=== PATIENT | male | born 1960 | race Caucasian/White ===

== ENCOUNTER → 2018-06-12 | Outpatient (CLI) | payer MEDICARE ==
[2018-06-12 09:42] LABS: Basophils # (auto) 0 uL; Basophils % (auto) 0.3 % (0.0-2.0); Eosinophils # (auto) 0.1 uL; Eosinophils % (auto) 2.8 % (0.0-7.0); Hematocrit 41.8 % (41.0-53.0); Hemoglobin 14.1 g/dL (13.5-17.5); Lymphocytes # (auto) 1.3 uL; Lymphocytes % (auto) 26.2 % (10.0-50.0); Mean Corpuscular Hemoglobin 28.9 pg (28.0-32.0); Mean Corpuscular Hgb Conc. 33.7 g/dL (32.0-36.0); Mean Corpuscular Volume 85.9 fL (80.0-100.0); Monocytes # (auto) 0.4 uL; Monocytes % (auto) 8.6 % (0.0-12.0); Neutrophils # (auto) 3.1 uL; Neutrophils % (auto) 62.1 % (37.0-80.0); Nucleated Red Blood Cells % 0.1 %; Platelet Count (auto) 227 10^3/uL (140-450); Red Blood Cells 4.87 10^6/uL (4.5-5.90); Red Cell Distribution Width 14.4 % (11.8-14.3); White Blood Cell 5.1 10^3/uL (4.4-10.8)
[2018-06-12 10:07] LABS: Potassium 4.4 mmol/L (3.5-5.1)
[2018-06-12 10:16] LABS: Albumin 4.1 g/dL (3.4-5.0); BUN/Creatinine Ratio 16.7; Bilirubin, Total 0.5 mg/dL (0.2-1.0); Calcium 9.3 mg/dL (8.5-10.1); Total Protein 7.8 g/dL (6.4-8.2)
== END | disposition home or self-care (01) ==
LOC: LAB 08:23
PROVIDERS: ATTEND Physician Assistant
DX: Z12.5 Encounter for screening for malignant neoplasm of prostate (principal); R53.83 Other fatigue; I20.8 Other forms of angina pectoris; R55 Syncope and collapse; M54.12 Radiculopathy, cervical region; G89.29 Other chronic pain
CPT/HCPCS: 36415; 80053; 80061; 84153; 84403; 85025

== ENCOUNTER 2018-08-18 08:04 | Day surgery (SDC) | payer MEDICARE ==
[2018-08-15 12:36] LABS: Basophils # (auto) 0 uL; Basophils % (auto) 0.6 % (0.0-2.0); Eosinophils # (auto) 0.3 uL; Eosinophils % (auto) 4.5 % (0.0-7.0); Hematocrit 41.6 % (41.0-53.0); Hemoglobin 14.5 g/dL (13.5-17.5); Lymphocytes # (auto) 1.7 uL; Lymphocytes % (auto) 29.9 % (10.0-50.0); Mean Corpuscular Hgb Conc. 34.9 g/dL (32.0-36.0); Mean Corpuscular Volume 85.8 fL (80.0-100.0); Monocytes # (auto) 0.4 uL; Monocytes % (auto) 7.4 % (0.0-12.0); Neutrophils # (auto) 3.2 uL; Neutrophils % (auto) 57.6 % (37.0-80.0); Platelet Count (auto) 234 10^3/uL (140-450); Red Blood Cells 4.85 10^6/uL (4.5-5.90); Red Cell Distribution Width 14.1 % (11.8-14.3); White Blood Cell 5.6 10^3/uL (4.4-10.8)
[2018-08-15 12:44] LABS: INR 0.97 (0.9-1.15); Partial Thromboplastin Time 29.2 sec (23.78-33.04); Prothrombin Time 10.4 sec (9.27-12.13)
[2018-08-15 13:09] LABS: Albumin 4.1 g/dL (3.4-5.0); Calcium 8.8 mg/dL (8.5-10.1); Potassium 4.1 mmol/L (3.5-5.1)
[2018-08-15 13:13] LABS: BUN/Creatinine Ratio 16.9; Bilirubin, Total 0.3 mg/dL (0.2-1.0); Total Protein 7.7 g/dL (6.4-8.2)
[~2018-08-18] VITALS: Ht 185.4 cm; Wt 120.2 kg
[~2018-08-18 08:04] MED LIST: ASPI81TA27 PO; IBUP200T76 PO; IOHEXOL 350 MG/ML 100ML IJ ONE; LIDOCAINE 2%HCL (LOCAL ANESTH.) INJ 20ML MDV ONE
[2018-08-18] MEDS ORDERED: ANGIOMAX 250 MG VIAL IV ONE (09:05)
[2018-08-18] MEDS ORDERED: SODIUM CHL 0.9% 0 ML ONE (09:06)
[2018-08-18] MEDS ORDERED: MIDAZOLAM HCL 1MG/1ML-2 ML VIAL ONE (09:06)
[2018-08-18] MEDS ORDERED: EPINEPHrine HCL 1 MG/10 ML SYRG ONE (09:06)
[2018-08-18] MEDS ORDERED: fentaNYL CITRATE 100 MCG/2 ML VL ONE (09:06)
[2018-08-18] MEDS ORDERED: ATROPINE SULF 1 MG/10ml SYR ONE (09:07)
[2018-08-18] MEDS ORDERED: IOHEXOL 350 MG/ML 100ML IJ ONE (09:16)
[2018-08-18] MEDS ORDERED: METO-158 PO (10:30)
== END 2018-08-18 12:14 | disposition home or self-care (01) ==
LOC: CATH 08:04
PROVIDERS: ATTEND Internal Medicine
DX: R07.89 Other chest pain (principal); I10 Essential (primary) hypertension; E78.5 Hyperlipidemia, unspecified; Z79.82 Long term (current) use of aspirin; I25.2 Old myocardial infarction; Z88.1 Allergy status to other antibiotic agents; Z79.899 Other long term (current) drug therapy; Z98.890 Other specified postprocedural states; Z88.2 Allergy status to sulfonamides
CPT/HCPCS: 36415; 80053; 85025; 85610; 85730; 93458; A6257; C1760; C1894; J1644; J2250; J3010; J7030; Q9967; 99152

== ENCOUNTER → 2018-10-02 | Outpatient (CLI) | payer MEDICARE ==
[~2018-10-02] MED LIST changes: -IOHEXOL 350 MG/ML 100ML IJ ONE; -LIDOCAINE 2%HCL (LOCAL ANESTH.) INJ 20ML MDV ONE; +METO-158 PO
== END | disposition home or self-care (01) ==
LOC: LAB 13:39
PROVIDERS: ATTEND Physician Assistant
DX: R79.89 Other specified abnormal findings of blood chemistry (principal)
CPT/HCPCS: 36415; 84403

== ENCOUNTER → 2018-10-23 | Outpatient (CLI) | payer MEDICARE | END | disposition home or self-care (01) | LOC: XYW 07:08 | PROVIDERS: ATTEND Internal Medicine | DX: I07.1 Rheumatic tricuspid insufficiency (principal); I48.91 Unspecified atrial fibrillation; I77.89 Other specified disorders of arteries and arterioles | CPT/HCPCS: 93306 ==

== ENCOUNTER → 2018-10-28 | Outpatient (CLI) | payer MEDICARE ==
[2018-10-28 09:45] VITALS: BP 169/68
--- NOTE | 2018-10-28 10:00 | NUR ---
Rec'd pt ambulatory, A/Ox4 on RA, connected to quality assurance monitor. BP high 169/98, HR 71; rest of VS WNL stress test assessment documentation & see cardio-neuro procedural notes for additional details, Lt AC 22G PIV flushes well, reviewed POC, pt verbalized understanding, Treadmill stress test performed per protocol, nuclear medicine at bedside to administer Cardiolite, pt tolerated well, VS returned to baseline, transferred to [facility] via ambulation w/ tech, pt stable, no change on exam.
== END | disposition home or self-care (01) ==
LOC: XY 08:25
PROVIDERS: ATTEND Internal Medicine
DX: I48.91 Unspecified atrial fibrillation (principal)
CPT/HCPCS: 78452; 93017; A9500

== ENCOUNTER → 2018-11-26 | Outpatient (CLI) | payer MEDICARE ==
[2018-11-26 14:54] LABS: Albumin 4.2 g/dL (3.4-5.0); Calcium 9.4 mg/dL (8.5-10.1); Potassium 3.6 mmol/L (3.5-5.1)
[2018-11-26 14:56] LABS: BUN/Creatinine Ratio 16.8
[2018-11-26 14:59] LABS: Bilirubin, Total 0.4 mg/dL (0.2-1.0); Total Protein 8.2 g/dL (6.4-8.2)
== END | disposition home or self-care (01) ==
LOC: LAB 14:00
PROVIDERS: ATTEND Internal Medicine
DX: I48.91 Unspecified atrial fibrillation (principal); I50.9 Heart failure, unspecified
CPT/HCPCS: 36415; 80053; 83880

== ENCOUNTER → 2018-12-05 | Outpatient (CLI) | payer MEDICARE, MEDICAID | END | disposition home or self-care (01) | LOC: XYW 10:25 | PROVIDERS: ATTEND Internal Medicine | DX: I07.1 Rheumatic tricuspid insufficiency (principal); I48.91 Unspecified atrial fibrillation; I50.9 Heart failure, unspecified | CPT/HCPCS: 93306 ==

== ENCOUNTER → 2018-12-26 | Outpatient (CLI) | payer MEDICARE, MEDICAID ==
[2018-12-26 11:03] LABS: Basophils # (auto) 0 uL; Basophils % (auto) 0.4 % (0.0-2.0); Eosinophils # (auto) 0.2 uL; Eosinophils % (auto) 3.2 % (0.0-7.0); Hematocrit 42.2 % (41.0-53.0); Hemoglobin 14.5 g/dL (13.5-17.5); Lymphocytes # (auto) 1.4 uL; Lymphocytes % (auto) 23.9 % (10.0-50.0); Mean Corpuscular Hemoglobin 29.6 pg (28.0-32.0); Mean Corpuscular Hgb Conc. 34.2 g/dL (32.0-36.0); Mean Corpuscular Volume 86.6 fL (80.0-100.0); Monocytes # (auto) 0.5 uL; Monocytes % (auto) 8.5 % (0.0-12.0); Neutrophils # (auto) 3.7 uL; Nucleated Red Blood Cells % 0.1 %; Platelet Count (auto) 242 10^3/uL (140-450); Red Blood Cells 4.88 10^6/uL (4.5-5.90); Red Cell Distribution Width 14.1 % (11.8-14.3); White Blood Cell 5.8 10^3/uL (4.4-10.8)
[2018-12-26 13:02] LABS: Chloride 105 mmol/L (98-107); Potassium 3.7 mmol/L (3.5-5.1); Sodium 141 mmol/L (136-145)
[2018-12-26 13:12] LABS: Alanine Aminotransferase 39 U/L (16-61); Anion Gap 9 (5-15); BUN/Creatinine Ratio 9.9; Blood Urea Nitrogen 9 mg/dL (7-18); Calcium 8.5 mg/dL (8.5-10.1); Carbon Dioxide 27 mmol/L (21-32); GFR African American 110 mL/min; GFR Non-African American 91 mL/min; Glucose 95 mg/dL (74-106)
[2018-12-26 13:52] LABS: Cholesterol 163 mg/dL (< 200); Triglycerides 437 mg/dL (< 150)
[2018-12-26 13:57] LABS: HDL Cholesterol 33 mg/dL (40-59)
[2018-12-26 14:02] LABS: Alkaline Phosphatase 75 U/L (45-117); Aspartate Aminotransferase 23 U/L (15-37); Bilirubin, Total 0.5 mg/dL (0.2-1.0); Total Protein 7.5 g/dL (6.4-8.2)
== END | disposition home or self-care (01) ==
LOC: LAB 10:44
PROVIDERS: ATTEND Physician Assistant
DX: Z12.5 Encounter for screening for malignant neoplasm of prostate (principal); R79.81 Abnormal blood-gas level; I11.0 Hypertensive heart disease with heart failure; I50.9 Heart failure, unspecified
CPT/HCPCS: 36415; 80053; 80061; 84153; 84403; 85025

== ENCOUNTER → 2019-05-06 | Outpatient (CLI) | payer MEDICARE, MEDICAID ==
[~2019-05-06] MED LIST changes: +ASPI-404 PO; -ASPI81TA27 PO
== END | disposition home or self-care (01) ==
LOC: LAB 14:35
PROVIDERS: ATTEND Physician Assistant
DX: E78.1 Pure hyperglyceridemia (principal); I11.0 Hypertensive heart disease with heart failure; I50.30 Unspecified diastolic (congestive) heart failure; R79.89 Other specified abnormal findings of blood chemistry; R53.83 Other fatigue; E55.9 Vitamin D deficiency, unspecified
CPT/HCPCS: 36415; 82306; 82607; 84403; 84443

== ENCOUNTER → 2019-05-07 | Outpatient (CLI) | payer MEDICARE, MEDICAID ==
[2019-05-07 14:42] LABS: Free T4 (Free Thyroxine) 0.76 ng/dL (0.89-1.76); T3 Total 1.34 ng/mL (0.60-1.81)
== END | disposition home or self-care (01) ==
LOC: LAB 13:27
PROVIDERS: ATTEND Physician Assistant
DX: R79.89 Other specified abnormal findings of blood chemistry (principal); I11.0 Hypertensive heart disease with heart failure; I50.30 Unspecified diastolic (congestive) heart failure; F17.200 Nicotine dependence, unspecified, uncomplicated
CPT/HCPCS: 84439; 84480

== ENCOUNTER → 2019-06-23 | Outpatient (CLI) | payer MEDICARE, MEDICAID ==
[2019-06-23 13:02] LABS: Basophils # (auto) 0 uL; Basophils % (auto) 0.7 % (0.0-2.0); Eosinophils # (auto) 0.2 uL; Eosinophils % (auto) 2.6 % (0.0-7.0); Hematocrit 44.8 % (41.0-53.0); Hemoglobin 15.2 g/dL (13.5-17.5); Lymphocytes # (auto) 1.4 uL; Lymphocytes % (auto) 19.4 % (10.0-50.0); Mean Corpuscular Hemoglobin 29.9 pg (28.0-32.0); Monocytes # (auto) 0.5 uL; Monocytes % (auto) 7.3 % (0.0-12.0); Platelet Count (auto) 265 10^3/uL (140-450); Red Blood Cells 5.09 10^6/uL (4.5-5.90); Red Cell Distribution Width 13.7 % (11.8-14.3); White Blood Cell 7.1 10^3/uL (4.4-10.8)
[2019-06-23 13:33] LABS: Albumin 4.3 g/dL (3.4-5.0); Calcium 8.8 mg/dL (8.5-10.1); Potassium 4.3 mmol/L (3.5-5.1)
[2019-06-23 13:38] LABS: BUN/Creatinine Ratio 11.6; Bilirubin, Total 0.4 mg/dL (0.2-1.0); Total Protein 7.9 g/dL (6.4-8.2)
[2019-06-23 13:42] LABS: Free T4 (Free Thyroxine) 1.05 ng/dL (0.89-1.76)
[2019-06-23 13:43] LABS: Prostate Specific Antigen 1.21 ng/mL (0.0-4.0)
[2019-06-23 13:44] LABS: T3 Total 1.21 ng/mL (0.60-1.81)
== END | disposition home or self-care (01) ==
LOC: LAB 12:40
PROVIDERS: ATTEND Physician Assistant
DX: I25.10 Atherosclerotic heart disease of native coronary artery without angina pectoris (principal); E03.9 Hypothyroidism, unspecified; E55.9 Vitamin D deficiency, unspecified; E78.1 Pure hyperglyceridemia; I10 Essential (primary) hypertension; R35.1 Nocturia; R79.89 Other specified abnormal findings of blood chemistry
CPT/HCPCS: 36415; 80053; 80061; 82306; 84153; 84403; 84439; 84443; 84480; 85025

== ENCOUNTER → 2019-08-26 | Outpatient (CLI) | payer MEDICARE, MEDICAID | END | disposition home or self-care (01) | LOC: XYW 09:03 | PROVIDERS: ATTEND Internal Medicine | DX: I07.1 Rheumatic tricuspid insufficiency (principal); Z98.890 Other specified postprocedural states | CPT/HCPCS: 93306 ==

== ENCOUNTER 2019-11-17 19:37 | Emergency (ER) | payer MEDICARE, MEDICAID ==
[~2019-11-17] VITALS: Ht 185.4 cm; Wt 108.9 kg
[2019-11-17 20:23] LABS: Basophils # (auto) 0.1 10 ^3/uL (0-0.2); Basophils % (auto) 0.8 % (0.0-2.0); Eosinophils # (auto) 0.2 10 ^3/uL (0-0.8); Eosinophils % (auto) 3.3 % (0.0-7.0); Hematocrit 44.5 % (41.0-53.0); Hemoglobin 15.2 g/dL (13.5-17.5); Lymphocytes # (auto) 1.7 10 ^3/uL (0.4-5.4); Lymphocytes % (auto) 27.2 % (10.0-50.0); Mean Corpuscular Hemoglobin 29.9 pg (28.0-32.0); Mean Corpuscular Hgb Conc. 34.2 g/dL (32.0-36.0); Mean Corpuscular Volume 87.3 fL (80.0-100.0); Monocytes # (auto) 0.5 10 ^3/uL (0-1.3); Monocytes % (auto) 8.4 % (0.0-12.0); Neutrophils # (auto) 3.8 10 ^3/uL (1.6-8.6); Neutrophils % (auto) 60.3 % (37.0-80.0); Nucleated Red Blood Cells % 0.1 %; Platelet Count (auto) 252 10^3/uL (140-450); Red Blood Cells 5.09 10^6/uL (4.5-5.90); Red Cell Distribution Width 14.5 % (11.8-14.3); White Blood Cell 6.3 10^3/uL (4.4-10.8)
[2019-11-17 20:41] LABS: Alanine Aminotransferase 40 U/L (16-61); Albumin 3.8 g/dL (3.4-5.0); Anion Gap 6 (5-15); Aspartate Aminotransferase 27 U/L (15-37); BUN/Creatinine Ratio 11.7; Blood Urea Nitrogen 9 mg/dL (7-18); Calcium 9.1 mg/dL (8.5-10.1); Carbon Dioxide 26 mmol/L (21-32); Chloride 105 mmol/L (98-107); GFR African American 133 mL/min; GFR Non-African American 110 mL/min; Glucose 121 mg/dL (74-106); Potassium 3.7 mmol/L (3.5-5.1); Sodium 137 mmol/L (136-145)
[2019-11-17 20:44] LABS: INR 1.05 (0.9-1.15); Partial Thromboplastin Time 28.1 sec (23.64-32.05)
[2019-11-17 20:46] LABS: Alkaline Phosphatase 60 U/L (45-117); Bilirubin, Total 0.4 mg/dL (0.2-1.0); Total Protein 7.7 g/dL (6.4-8.2)
[2019-11-17 21:22] LABS: Urine Bacteria NONE SEEN /hpf (None Seen); Urine Blood Negative /uL (Negative); Urine Specific Gravity 1.006 (1.001-1.035); Urine WBC <1 /hpf (0 - 3)
[2019-11-17 21:34] VITALS: BP 127/82
== END 2019-11-17 21:35 | disposition home or self-care (01) ==
LOC: ER 19:37
DX: R07.89 Other chest pain (principal); I10 Essential (primary) hypertension; I25.2 Old myocardial infarction; Z88.2 Allergy status to sulfonamides
CPT/HCPCS: 36415; 71045; 80053; 81001; 83880; 84484; 85025; 85610; 85730; 93005

== ENCOUNTER → 2020-01-25 | Outpatient (CLI) | payer MEDICARE, MEDICAID ==
[2020-01-25 16:43] LABS: Free T4 (Free Thyroxine) 0.77 ng/dL (0.89-1.76)
[2020-01-25 16:44] LABS: T3 Total 0.98 ng/mL (0.60-1.81)
== END | disposition home or self-care (01) ==
LOC: LAB 15:34
PROVIDERS: ATTEND Physician Assistant
DX: E03.9 Hypothyroidism, unspecified (principal); R79.89 Other specified abnormal findings of blood chemistry
CPT/HCPCS: 36415; 84403; 84439; 84443; 84480

== ENCOUNTER → 2020-05-24 | Outpatient (CLI) | payer MEDICARE, MEDICAID ==
[~2020-05-24] MED LIST changes: -ASPI-404 PO; +ASPI-543 PO
[2020-05-24 09:14] LABS: Basophils # (auto) 0 10 ^3/uL (0-0.2); Basophils % (auto) 0.3 % (0.0-2.0); Eosinophils # (auto) 0 10 ^3/uL (0-0.8); Eosinophils % (auto) 0.1 % (0.0-7.0); Hematocrit 47.7 % (41.0-53.0); Hemoglobin 16.1 g/dL (13.5-17.5); Lymphocytes # (auto) 1.2 10 ^3/uL (0.4-5.4); Lymphocytes % (auto) 11.8 % (10.0-50.0); Mean Corpuscular Hemoglobin 29.4 pg (28.0-32.0); Mean Corpuscular Hgb Conc. 33.7 g/dL (32.0-36.0); Mean Corpuscular Volume 87.2 fL (80.0-100.0); Monocytes # (auto) 0.6 10 ^3/uL (0-1.3); Monocytes % (auto) 5.5 % (0.0-12.0); Neutrophils # (auto) 8.3 10 ^3/uL (1.6-8.6); Neutrophils % (auto) 82.3 % (37.0-80.0); Nucleated Red Blood Cells % 0.1 %; Platelet Count (auto) 225 10^3/uL (140-450); Red Blood Cells 5.47 10^6/uL (4.5-5.90); Red Cell Distribution Width 14.2 % (11.8-14.3)
[2020-05-24 10:14] LABS: Free T4 (Free Thyroxine) 0.64 ng/dL (0.89-1.76); Prostate Specific Antigen 1.39 ng/mL (0.0-4.0); T3 Total 0.9 ng/mL (0.60-1.81)
[2020-05-24 10:25] LABS: Albumin 4.3 g/dL (3.4-5.0); Bilirubin, Total 0.5 mg/dL (0.2-1.0); Calcium 8.9 mg/dL (8.5-10.1); Total Protein 7.8 g/dL (6.4-8.2)
== END | disposition home or self-care (01) ==
LOC: LAB 08:48
PROVIDERS: ATTEND Physician Assistant
DX: E78.1 Pure hyperglyceridemia (principal); I10 Essential (primary) hypertension; E03.9 Hypothyroidism, unspecified; E55.9 Vitamin D deficiency, unspecified; R35.1 Nocturia; R79.89 Other specified abnormal findings of blood chemistry
CPT/HCPCS: 36415; 80053; 80061; 82306; 84153; 84403; 84439; 84443; 84480; 85025

== ENCOUNTER → 2020-09-12 | Outpatient (CLI) | payer MEDICARE, MEDICAID ==
[2020-09-12 12:38] LABS: Folate (Folic Acid) 18.98 ng/mL (5.38-24)
== END | disposition home or self-care (01) ==
LOC: LAB 11:35
PROVIDERS: ATTEND Psychiatry & Neurology Neurology
DX: G62.9 Polyneuropathy, unspecified (principal); Z79.899 Other long term (current) drug therapy
CPT/HCPCS: 36415; 82607; 82746; 83036

== ENCOUNTER → 2020-09-30 | Outpatient (CLI) | payer OTHER | END | disposition home or self-care (01) | LOC: LAB 09:22 | PROVIDERS: ATTEND Psychiatry & Neurology Neurology | DX: G61.9 Inflammatory polyneuropathy, unspecified (principal) | CPT/HCPCS: 36415; 82951; 84155; 84165 ==

== ENCOUNTER → 2020-10-05 | Outpatient (CLI) | payer OTHER | END | disposition home or self-care (01) | LOC: XYW 08:34 | PROVIDERS: ATTEND Internal Medicine | DX: I07.1 Rheumatic tricuspid insufficiency (principal); R07.9 Chest pain, unspecified | CPT/HCPCS: 93306 ==

== ENCOUNTER → 2021-02-17 | Outpatient (CLI) | payer OTHER ==
[2021-02-17 08:22] LABS: Basophils # (auto) 0.1 10 ^3/uL (0-0.2); Basophils % (auto) 0.9 % (0.0-2.0); Eosinophils # (auto) 0.1 10 ^3/uL (0-0.8); Eosinophils % (auto) 1.7 % (0.0-7.0); Hematocrit 50.8 % (41.0-53.0); Hemoglobin 17.6 g/dL (13.5-17.5); Lymphocytes # (auto) 1.3 10 ^3/uL (0.4-5.4); Lymphocytes % (auto) 14.7 % (10.0-50.0); Mean Corpuscular Hemoglobin 30.3 pg (28.0-32.0); Mean Corpuscular Hgb Conc. 34.6 g/dL (32.0-36.0); Mean Corpuscular Volume 87.5 fL (80.0-100.0); Monocytes # (auto) 0.6 10 ^3/uL (0-1.3); Monocytes % (auto) 7.5 % (0.0-12.0); Neutrophils # (auto) 6.4 10 ^3/uL (1.6-8.6); Neutrophils % (auto) 75.2 % (37.0-80.0); Nucleated Red Blood Cells % 0.1 %; Red Blood Cells 5.81 10^6/uL (4.5-5.90); Red Cell Distribution Width 14.9 % (11.8-14.3); White Blood Cell 8.5 10^3/uL (4.4-10.8)
[2021-02-17 08:47] LABS: Calcium 8.6 mg/dL (8.5-10.1); Potassium 3.6 mmol/L (3.5-5.1)
[2021-02-17 08:54] LABS: BUN/Creatinine Ratio 10.9; Bilirubin, Total 1.2 mg/dL (0.2-1.0); Total Protein 7.8 g/dL (6.4-8.2)
== END | disposition home or self-care (01) ==
LOC: LAB 07:59
PROVIDERS: ATTEND Nurse Practitioner Family
DX: I10 Essential (primary) hypertension (principal); E78.5 Hyperlipidemia, unspecified; E55.9 Vitamin D deficiency, unspecified; R35.1 Nocturia; R79.89 Other specified abnormal findings of blood chemistry
CPT/HCPCS: 36415; 80053; 80061; 82306; 84153; 84403; 84443; 85025

== ENCOUNTER → 2021-08-16 | Outpatient (CLI) | payer OTHER, MEDICARE, MEDICAID | END | disposition home or self-care (01) | LOC: LAB 08:41 | PROVIDERS: ATTEND Nurse Practitioner Family | DX: E03.9 Hypothyroidism, unspecified (principal); R79.89 Other specified abnormal findings of blood chemistry | CPT/HCPCS: 36415; 84403; 84439; 84443 ==

== ENCOUNTER → 2022-01-16 | Outpatient (CLI) | payer OTHER, MEDICAID ==
[~2022-01-16] VITALS: Ht 185.4 cm; Wt 111.1 kg
[~2022-01-16] MED LIST changes: +ADENOSINE 93 MG in GIVE UN-DILUTED 0 ML IV STA
== END | disposition home or self-care (01) ==
LOC: XY 07:55
PROVIDERS: ATTEND Internal Medicine
DX: I20.9 Angina pectoris, unspecified (principal); R07.89 Other chest pain; I10 Essential (primary) hypertension; E78.5 Hyperlipidemia, unspecified; E03.9 Hypothyroidism, unspecified; R63.8 Other symptoms and signs concerning food and fluid intake; Z68.32 Body mass index [BMI] 32.0-32.9, adult; Z86.79 Personal history of other diseases of the circulatory system
CPT/HCPCS: 78452; 93017; A9500; J0153

== ENCOUNTER → 2022-01-29 | Outpatient (CLI) | payer OTHER, MEDICAID ==
[~2022-01-29] MED LIST changes: -ADENOSINE 93 MG in GIVE UN-DILUTED 0 ML IV STA
[2022-01-29 09:24] LABS: Basophils # (auto) 0 10 ^3/uL (0-0.2); Basophils % (auto) 0.5 % (0.0-2.0); Eosinophils # (auto) 0.2 10 ^3/uL (0-0.8); Eosinophils % (auto) 2.9 % (0.0-7.0); Hematocrit 43.8 % (41.0-53.0); Hemoglobin 14.6 g/dL (13.5-17.5); Lymphocytes # (auto) 1.8 10 ^3/uL (0.4-5.4); Lymphocytes % (auto) 27.1 % (10.0-50.0); Mean Corpuscular Hgb Conc. 33.4 g/dL (32.0-36.0); Mean Corpuscular Volume 86.9 fL (80.0-100.0); Monocytes # (auto) 0.5 10 ^3/uL (0-1.3); Neutrophils # (auto) 4.3 10 ^3/uL (1.6-8.6); Neutrophils % (auto) 62.5 % (37.0-80.0); Nucleated Red Blood Cells % 0.1 %; Red Blood Cells 5.04 10^6/uL (4.5-5.90); White Blood Cell 6.8 10^3/uL (4.4-10.8)
[2022-01-29 09:50] LABS: Albumin 4.2 g/dL (3.4-5.0); Calcium 9.1 mg/dL (8.5-10.1); Potassium 4.3 mmol/L (3.5-5.1)
[2022-01-29 09:55] LABS: Bilirubin, Total 0.6 mg/dL (0.2-1.0); Total Protein 7.4 g/dL (6.4-8.2)
[2022-01-29 09:58] LABS: Free T4 (Free Thyroxine) 0.81 ng/dL (0.89-1.76)
== END | disposition home or self-care (01) ==
LOC: LAB 08:59
PROVIDERS: ATTEND Nurse Practitioner Family
DX: Z00.00 Encounter for general adult medical examination without abnormal findings (principal); N40.0 Benign prostatic hyperplasia without lower urinary tract symptoms; E55.9 Vitamin D deficiency, unspecified; E78.1 Pure hyperglyceridemia; I10 Essential (primary) hypertension
CPT/HCPCS: 36415; 80053; 80061; 82270; 82306; 84153; 84403; 84439; 84443; 85025

== ENCOUNTER 2022-03-21 06:23 | Inpatient (IN) | payer OTHER, MEDICAID ==
[2022-03-19 11:50] LABS: Basophils # (auto) 0 10 ^3/uL (0-0.2); Basophils % (auto) 0.4 % (0.0-2.0); Eosinophils # (auto) 0.1 10 ^3/uL (0-0.8); Eosinophils % (auto) 2.2 % (0.0-7.0); Hematocrit 44.8 % (41.0-53.0); Hemoglobin 14.9 g/dL (13.5-17.5); Lymphocytes # (auto) 1.5 10 ^3/uL (0.4-5.4); Lymphocytes % (auto) 23.4 % (10.0-50.0); Mean Corpuscular Hemoglobin 29.3 pg (28.0-32.0); Mean Corpuscular Hgb Conc. 33.2 g/dL (32.0-36.0); Mean Corpuscular Volume 88.2 fL (80.0-100.0); Monocytes # (auto) 0.5 10 ^3/uL (0-1.3); Neutrophils # (auto) 4.2 10 ^3/uL (1.6-8.6); Nucleated Red Blood Cells % 0.1 %; Red Blood Cells 5.08 10^6/uL (4.5-5.90); Red Cell Distribution Width 14.8 % (11.8-14.3); White Blood Cell 6.4 10^3/uL (4.4-10.8)
[2022-03-19 12:05] LABS: INR 1.05 (0.9-1.15); Partial Thromboplastin Time 27.7 sec (24.6-33.4)
[2022-03-19 12:47] LABS: Potassium 4.5 mmol/L (3.5-5.1)
[2022-03-19 12:59] LABS: Albumin 4.4 g/dL (3.4-5.0); BUN/Creatinine Ratio 14.3; Bilirubin, Total 0.4 mg/dL (0.2-1.0); Calcium 9.3 mg/dL (8.5-10.1); Total Protein 7.4 g/dL (6.4-8.2)
[~2022-03-21] VITALS: Ht 185.4 cm; Wt 111.1 kg
[2022-03-21] VITALS (11 sets, daily range): BP systolic 125–184; BP diastolic 85–117
[~2022-03-21 06:23] MED LIST changes: +ATOR40TA52 PO; +GABA100C9 PO; -IBUP200T76 PO; +IBUP800T27 PO; +LEVO50TA7 PO; +OMEP20TA PO
[2022-03-21] MEDS ORDERED: IODIXANOL 320MG/ML 100ML BTL IV ONE ×3 (07:46→10:52)
[2022-03-21] MEDS ORDERED: LIDOCAINE 2%HCL (LOCAL ANESTH.) INJ 20ML MDV ONE (07:47)
[2022-03-21] MEDS ORDERED: IOHEXOL 350 MG/ML 100ML IJ ONE (08:01)
[2022-03-21] MEDS ORDERED: VERAPAMIL 2.5MG/ML INJ 2ML VIAL IV ONE (08:55)
[2022-03-21] MEDS ORDERED: ANGIOMAX 250 MG VIAL IV ONE ×2 (08:55→10:31)
[2022-03-21] MEDS ORDERED: HEPARIN SODIUM (PORCINE) 5000 UNITS/ML 1ML VIAL ONE (08:55)
[2022-03-21] MEDS ORDERED: fentaNYL CITRATE 100 MCG/2 ML VL ONE (08:55)
[2022-03-21] MEDS ORDERED: SODIUM CHL 0.9% 50 ML ONE ×2 (08:55→10:31)
[2022-03-21] MEDS ORDERED: MIDAZOLAM HCL 2MG/2ML 2ml VIAL (1mg/ml) ONE (08:55)
[2022-03-21] MEDS ORDERED: ATROPINE SULF 1 MG/10ml SYR ONE (09:54)
[2022-03-21] MEDS ORDERED: EPINEPHrine HCL 1 MG/10 ML SYRG ONE (09:55)
[2022-03-21] MEDS ORDERED: PRASUGREL HCL 10 MG TAB PO ONE (11:00)
[2022-03-21] MEDS ORDERED: MORPHINE SULFATE INJ 2 MG/ml SYRG IV PRN (11:30)
[2022-03-21] MEDS ORDERED: NITROGLYCERIN 0.4 MG SL TAB SL PRN (11:30)
[2022-03-21] MEDS ORDERED: METOPROLOL TARTRATE 1MG/1ML-5ML VIAL IV ONE ×2 (12:29→12:30)
[2022-03-21] MEDS ORDERED: IBUPROFEN 800 MG TAB PO PRN (12:30)
[2022-03-21] MEDS ORDERED: METOPROLOL TARTRATE 50 MG TAB PO ONE (13:45)
[2022-03-21] MEDS ORDERED: METOPROLOL TARTRATE 25 MG TAB ONE (13:50)
[2022-03-21] MEDS ORDERED: DOCUSATE SOD 100 MG CAP PO PRN (15:15)
[2022-03-21] MEDS ORDERED: LISINOPRIL 10 MG TAB PO ONE (15:15)
[2022-03-21] MEDS ORDERED: HYDROcodone-ACET 5/325MG TAB PO PRN (15:15)
[2022-03-21] MEDS ORDERED: DOCUSATE SOD 100 MG CAP PO ONE (15:15)
[2022-03-21] MEDS ORDERED: POLYETHYLENE GLYCOL 17 GM PWDR PO ONE (15:15)
[2022-03-21] MEDS ORDERED: ONDANSETRON HCL 4 MG/2 ML VIAL IV PRN (15:15)
[2022-03-21] MEDS: GABAPENTIN 100 MG CAP PO SCH ×2 (16:00→22:15)
[2022-03-21 18:08] LABS: Urine Bacteria NONE SEEN /hpf (None Seen); Urine Blood Negative /uL (Negative); Urine Specific Gravity > 1.050 (1.001-1.035); Urine WBC 1 /hpf (0 - 3)
[2022-03-21] MEDS ORDERED: ATORVASTATIN 20 MG TAB PO SCH (22:00)
[2022-03-21] MEDS: METOPROLOL TARTRATE 50 MG TAB PO SCH (22:15)
[2022-03-21] MEDS: ACETAMINOPHEN 500 MG TAB PO PRN (22:16)
[2022-03-22] MEDS: GABAPENTIN 100 MG CAP PO SCH (06:16)
[2022-03-22] MEDS ORDERED: LEVOTHYROXINE SODIUM 50 MCG TAB PO SCH (07:00)
[2022-03-22 07:13] LABS: Basophils # (auto) 0 10 ^3/uL (0-0.2); Basophils % (auto) 0.2 % (0.0-2.0); Eosinophils # (auto) 0.1 10 ^3/uL (0-0.8); Eosinophils % (auto) 1.1 % (0.0-7.0); Hematocrit 45.7 % (41.0-53.0); Hemoglobin 15.5 g/dL (13.5-17.5); Lymphocytes % (auto) 9.7 % (10.0-50.0); Mean Corpuscular Hemoglobin 29.3 pg (28.0-32.0); Mean Corpuscular Hgb Conc. 33.8 g/dL (32.0-36.0); Mean Corpuscular Volume 86.6 fL (80.0-100.0); Monocytes # (auto) 0.7 10 ^3/uL (0-1.3); Monocytes % (auto) 6.6 % (0.0-12.0); Neutrophils # (auto) 8.8 10 ^3/uL (1.6-8.6); Neutrophils % (auto) 82.4 % (37.0-80.0); Nucleated Red Blood Cells % 0.1 %; Red Blood Cells 5.28 10^6/uL (4.5-5.90); Red Cell Distribution Width 14.3 % (11.8-14.3); White Blood Cell 10.6 10^3/uL (4.4-10.8)
[2022-03-22 07:44] LABS: BUN/Creatinine Ratio 11.4; Calcium 8.5 mg/dL (8.5-10.1); Potassium 3.9 mmol/L (3.5-5.1)
[2022-03-22 09:00] VITALS: BP 155/90
[2022-03-22] MEDS: METOPROLOL TARTRATE 50 MG TAB PO SCH (09:51)
[2022-03-22] MEDS ORDERED: PATIENTS OWN MEDICATION (Atorvastatin Calcium 1 TAB) PO SCH (10:00)
[2022-03-22] MEDS ORDERED: PANTOPRAZOLE 40 MG TAB PO SCH (10:00)
[2022-03-22] MEDS ORDERED: ASPirin-EC 81 mg tab PO SCH (10:00)
[2022-03-22] MEDS ORDERED: PRASUGREL HCL 10 MG TAB PO SCH (10:00)
[2022-03-22] MEDS ORDERED: LISINOPRIL 10 MG TAB PO SCH (10:00)
[2022-03-22] MEDS ORDERED: PATIENTS OWN MEDICATION (Omeprazole (Gnp Omeprazole) 1 TAB) PO SCH (10:00)
[2022-03-22] MEDS: ACETAMINOPHEN 500 MG TAB PO PRN (10:07)
[2022-03-22] MEDS ORDERED: PRAS10TA18 PO ×2 (12:19→15:28)
[2022-03-22] MEDS ORDERED: LISI-716 PO (12:19)
[2022-03-22 13:00] VITALS: BP 153/79
[2022-03-22 13:50] VITALS: BP 155/90
[2022-03-22] MEDS ORDERED: CLOP75TA28 PO (14:57)
[2022-03-22] MEDS ORDERED: CLOPIDOGREL 300 MG TAB PO ONE (15:00)
== END 2022-03-22 14:25 | disposition home or self-care (01) | DRG 246 ==
LOC: CATH 06:23 → TELE 11:33 → TELE-WESTW 14:57
PROVIDERS: ADMIT Internal Medicine; ATTEND Internal Medicine
PROC: 027037Z Dilation of Coronary Artery, One Artery with Four or More Drug-eluting Intraluminal Devices, Percutaneous Approach (ICD-10-PCS; principal; 2022-03-21)
PROC: 4A023N7 Measurement of Cardiac Sampling and Pressure, Left Heart, Percutaneous Approach (ICD-10-PCS; 2022-03-21)
PROC: B211YZZ Fluoroscopy of Multiple Coronary Arteries using Other Contrast (ICD-10-PCS; 2022-03-21)
PROC: B215YZZ Fluoroscopy of Left Heart using Other Contrast (ICD-10-PCS; 2022-03-21)
DX: I25.10 Atherosclerotic heart disease of native coronary artery without angina pectoris (principal); I16.0 Hypertensive urgency; Z20.822 Contact with and (suspected) exposure to COVID-19; I10 Essential (primary) hypertension; E78.5 Hyperlipidemia, unspecified; E03.9 Hypothyroidism, unspecified; E66.9 Obesity, unspecified; Z79.02 Long term (current) use of antithrombotics/antiplatelets; Z79.899 Other long term (current) drug therapy; Z68.32 Body mass index [BMI] 32.0-32.9, adult; Z88.2 Allergy status to sulfonamides
CPT/HCPCS: 36415; 80048; 80053; 81001; 84443; 85025; 85610; 85730; 92928; 92929; 93458; 99152; 99153; C1769; C1874; G0378; J2250; Q9967

== ENCOUNTER → 2022-04-18 | Outpatient (CLI) | payer OTHER, MEDICAID ==
[~2022-04-18] MED LIST changes: +LISI-716 PO; +PRAS10TA18 PO
[2022-04-18 14:02] LABS: Potassium 3.7 mmol/L (3.5-5.1)
[2022-04-18 14:12] LABS: Albumin 4.1 g/dL (3.4-5.0); BUN/Creatinine Ratio 15.9; Bilirubin, Total 0.8 mg/dL (0.2-1.0); Calcium 9.3 mg/dL (8.5-10.1); Total Protein 7.6 g/dL (6.4-8.2)
== END | disposition home or self-care (01) ==
LOC: LAB 12:21
PROVIDERS: ATTEND Internal Medicine
DX: I25.10 Atherosclerotic heart disease of native coronary artery without angina pectoris (principal); I10 Essential (primary) hypertension
CPT/HCPCS: 36415; 80053

== ENCOUNTER → 2022-10-01 | Outpatient (CLI) | payer OTHER ==
[2022-10-01 09:00] LABS: Basophils # (auto) 0.1 10 ^3/uL (0-0.2); Basophils % (auto) 1.1 % (0.0-2.0); Eosinophils # (auto) 0.1 10 ^3/uL (0-0.8); Eosinophils % (auto) 2.1 % (0.0-7.0); Hematocrit 48.1 % (41.0-53.0); Hemoglobin 16.7 g/dL (13.5-17.5); Lymphocytes # (auto) 1.4 10 ^3/uL (0.4-5.4); Lymphocytes % (auto) 23.1 % (10.0-50.0); Mean Corpuscular Hgb Conc. 34.7 g/dL (32.0-36.0); Mean Corpuscular Volume 86.6 fL (80.0-100.0); Monocytes # (auto) 0.5 10 ^3/uL (0-1.3); Monocytes % (auto) 8.7 % (0.0-12.0); Nucleated Red Blood Cells % 0.3 %; Red Blood Cells 5.55 10^6/uL (4.5-5.90); Red Cell Distribution Width 14.7 % (11.8-14.3); White Blood Cell 6.2 10^3/uL (4.4-10.8)
[2022-10-01 09:19] LABS: INR 1.06 (0.9-1.15)
[2022-10-01 10:00] LABS: Albumin 3.8 g/dL (3.4-5.0); Potassium 3.7 mmol/L (3.5-5.1)
[2022-10-01 10:14] LABS: BUN/Creatinine Ratio 14.1 (10.0-20.0); Bilirubin, Total 0.5 mg/dL (0.2-1.0); Calcium 8.9 mg/dL (8.5-10.1); Total Protein 7.5 g/dL (6.4-8.2)
[2022-10-01 12:53] LABS: Hepatitis C Antibody Negative (Negative)
== END | disposition home or self-care (01) ==
LOC: LAB 08:41
PROVIDERS: ATTEND Internal Medicine Gastroenterology
DX: R94.5 Abnormal results of liver function studies (principal)
CPT/HCPCS: 36415; 80053; 80061; 82728; 83036; 85025; 85610; 86803; 87340

== ENCOUNTER → 2023-01-23 | Outpatient (CLI) | payer OTHER ==
[~2023-01-23] MED LIST changes: +GABA-1308 PO; -GABA100C9 PO; +IBUP-1456 PO; -IBUP800T27 PO; -LISI-716 PO; +LISI10TA34 PO; -PRAS10TA18 PO; +PRAS10TA19 PO
[2023-01-23 10:06] LABS: Basophils # (auto) 0 10 ^3/uL (0-0.2); Basophils % (auto) 0.3 % (0.0-2.0); Eosinophils # (auto) 0.2 10 ^3/uL (0-0.8); Eosinophils % (auto) 2.5 % (0.0-7.0); Hemoglobin 15.7 g/dL (13.5-17.5); Lymphocytes % (auto) 22.9 % (10.0-50.0); Mean Corpuscular Hemoglobin 30.3 pg (28.0-32.0); Mean Corpuscular Hgb Conc. 34.1 g/dL (32.0-36.0); Mean Corpuscular Volume 88.9 fL (80.0-100.0); Monocytes # (auto) 0.7 10 ^3/uL (0-1.3); Monocytes % (auto) 7.7 % (0.0-12.0); Neutrophils # (auto) 5.7 10 ^3/uL (1.6-8.6); Neutrophils % (auto) 66.6 % (37.0-80.0); Nucleated Red Blood Cells % 0.1 %; Red Blood Cells 5.18 10^6/uL (4.5-5.90); Red Cell Distribution Width 14.3 % (11.8-14.3); White Blood Cell 8.5 10^3/uL (4.4-10.8)
[2023-01-23 10:45] LABS: Albumin 3.9 g/dL (3.4-5.0); Calcium 9.2 mg/dL (8.5-10.1); Potassium 3.6 mmol/L (3.5-5.1)
[2023-01-23 10:54] LABS: BUN/Creatinine Ratio 12.9 (10.0-20.0); Bilirubin, Total 0.6 mg/dL (0.2-1.0); Total Protein 7.8 g/dL (6.4-8.2)
[2023-01-23 11:14] LABS: Free T4 (Free Thyroxine) 0.76 ng/dL (0.89-1.76); Prostate Specific Antigen 1.42 ng/mL (0.0-4.0)
== END | disposition home or self-care (01) ==
LOC: LAB 09:33
DX: I10 Essential (primary) hypertension (principal); E03.9 Hypothyroidism, unspecified; R79.89 Other specified abnormal findings of blood chemistry; E78.5 Hyperlipidemia, unspecified
CPT/HCPCS: 36415; 80053; 80061; 84153; 84403; 84439; 84443; 85025

== ENCOUNTER → 2023-02-11 | Outpatient (CLI) | payer OTHER | END | disposition home or self-care (01) | LOC: LAB 14:03 | DX: R79.89 Other specified abnormal findings of blood chemistry (principal) | CPT/HCPCS: 36415; 84403 ==

== ENCOUNTER → 2023-04-08 | Outpatient (CLI) | payer OTHER | END | disposition home or self-care (01) | LOC: LAB 08:47 | PROVIDERS: ATTEND Nurse Practitioner Family | DX: R79.89 Other specified abnormal findings of blood chemistry (principal) | CPT/HCPCS: 36415; 84403 ==

== ENCOUNTER → 2023-04-22 | Outpatient (CLI) | payer OTHER | END | disposition home or self-care (01) | LOC: XYW 07:16 | PROVIDERS: ATTEND Student in an Organized Health Care Education/Training Program | DX: I51.89 Other ill-defined heart diseases (principal); I25.118 Atherosclerotic heart disease of native coronary artery with other forms of angina pectoris | CPT/HCPCS: 93306 ==

== ENCOUNTER → 2023-05-13 | Outpatient (CLI) | payer OTHER | END | disposition home or self-care (01) | LOC: LAB 09:16 | PROVIDERS: ATTEND Nurse Practitioner Family | DX: R79.89 Other specified abnormal findings of blood chemistry (principal) | CPT/HCPCS: 36415; 84403 ==

== ENCOUNTER → 2023-06-14 | Outpatient (CLI) | payer OTHER, MEDICAID ==
[~2023-06-14] VITALS: Ht 185.4 cm; Wt 108.9 kg
[~2023-06-14] MED LIST changes: +ADENOSINE 91 MG in GIVE UN-DILUTED 0 ML IV ONE
== END | disposition home or self-care (01) ==
LOC: XYW 07:49
PROVIDERS: ATTEND Student in an Organized Health Care Education/Training Program
DX: I21.19 ST elevation (STEMI) myocardial infarction involving other coronary artery of inferior wall (principal); I25.118 Atherosclerotic heart disease of native coronary artery with other forms of angina pectoris; I10 Essential (primary) hypertension; E78.1 Pure hyperglyceridemia
CPT/HCPCS: 78452; 93017; A9500; J0153

== ENCOUNTER 2023-06-21 09:23 | Day surgery (SDC) | payer OTHER, MEDICAID ==
[2023-06-18 08:49] LABS: Basophils # (auto) 0 10 ^3/uL (0-0.2); Basophils % (auto) 0.3 % (0.0-2.0); Eosinophils # (auto) 0.1 10 ^3/uL (0-0.8); Eosinophils % (auto) 1.4 % (0.0-7.0); Hematocrit 45.3 % (41.0-53.0); Hemoglobin 15.1 g/dL (13.5-17.5); Lymphocytes # (auto) 1.3 10 ^3/uL (0.4-5.4); Lymphocytes % (auto) 20.8 % (10.0-50.0); Mean Corpuscular Hemoglobin 30.7 pg (28.0-32.0); Mean Corpuscular Hgb Conc. 33.4 g/dL (32.0-36.0); Mean Corpuscular Volume 92.1 fL (80.0-100.0); Monocytes # (auto) 0.6 10 ^3/uL (0-1.3); Neutrophils # (auto) 4.3 10 ^3/uL (1.6-8.6); Neutrophils % (auto) 67.5 % (37.0-80.0); Nucleated Red Blood Cells % 0.1 %; Red Blood Cells 4.92 10^6/uL (4.5-5.90); Red Cell Distribution Width 14.9 % (11.8-14.3); White Blood Cell 6.3 10^3/uL (4.4-10.8)
[2023-06-18 09:18] LABS: INR 1.15 (0.9-1.15); Partial Thromboplastin Time 27.6 SEC (24.5-34.5)
[2023-06-18 09:30] LABS: Alanine Aminotransferase 30 U/L (7-40); Alkaline Phosphatase 37 U/L (46-116); Anion Gap 7 (5-15); Aspartate Aminotransferase 21 U/L (13-40); BUN/Creatinine Ratio 12.4 (10.0-20.0); Bilirubin, Total 0.6 mg/dL (0.2-1.0); Blood Urea Nitrogen 13 mg/dL (9-23); Calcium 9.9 mg/dL (8.5-10.1); Carbon Dioxide 28 mmol/L (20-30); Chloride 106 mmol/L (98-107); Glucose 119 mg/dL (74-106); Potassium 3.8 mmol/L (3.5-5.1); Sodium 141 mmol/L (136-145); Total Protein 7.4 g/dL (5.7-8.2)
[~2023-06-21] VITALS: Ht 185.4 cm; Wt 99.8 kg
[~2023-06-21 09:23] MED LIST changes: -ADENOSINE 91 MG in GIVE UN-DILUTED 0 ML IV ONE
[2023-06-21 09:40] VITALS: TEMP 98.4
[2023-06-21 10:48] VITALS: O2SAT 98
[2023-06-21 11:09] VITALS: O2SAT 98
[2023-06-21 11:44] VITALS: BP 123/72; PULSE 72; RESP 13; O2SAT 98
== END 2023-06-21 11:46 | disposition home or self-care (01) ==
LOC: GI 09:23
PROVIDERS: ATTEND Internal Medicine Gastroenterology
DX: R13.10 Dysphagia, unspecified (principal); K21.9 Gastro-esophageal reflux disease without esophagitis; K44.9 Diaphragmatic hernia without obstruction or gangrene; K29.50 Unspecified chronic gastritis without bleeding; I10 Essential (primary) hypertension; Z79.899 Other long term (current) drug therapy; Z98.890 Other specified postprocedural states
CPT/HCPCS: 36415; 43239; 43450; 80053; 85025; 85610; 85730; J7030

== ENCOUNTER → 2023-07-03 | Outpatient (CLI) | payer OTHER ==
[2023-07-04 07:06] LABS: Immunoglobulin A 161 mg/dL (61-437)
== END | disposition home or self-care (01) ==
LOC: LAB 11:12
PROVIDERS: ATTEND Internal Medicine Gastroenterology
DX: K44.9 Diaphragmatic hernia without obstruction or gangrene (principal); R13.19 Other dysphagia
CPT/HCPCS: 82784; 83516; 86255

== ENCOUNTER 2023-10-30 07:40 | Day surgery (SDC) | payer OTHER, MEDICAID ==
[2023-10-28 11:35] LABS: Basophils # (auto) 0 10 ^3/uL (0-0.2); Basophils % (auto) 0.4 % (0.0-2.0); Eosinophils # (auto) 0.2 10 ^3/uL (0-0.8); Eosinophils % (auto) 2.3 % (0.0-7.0); Hematocrit 42.2 % (41.0-53.0); Lymphocytes # (auto) 1.7 10 ^3/uL (0.4-5.4); Lymphocytes % (auto) 24.6 % (10.0-50.0); Mean Corpuscular Hemoglobin 29.7 pg (28.0-32.0); Mean Corpuscular Hgb Conc. 33.1 g/dL (32.0-36.0); Mean Corpuscular Volume 89.7 fL (80.0-100.0); Monocytes # (auto) 0.6 10 ^3/uL (0-1.3); Monocytes % (auto) 8.4 % (0.0-12.0); Neutrophils # (auto) 4.5 10 ^3/uL (1.6-8.6); Neutrophils % (auto) 64.3 % (37.0-80.0); Nucleated Red Blood Cells % 0.1 %; Red Blood Cells 4.71 10^6/uL (4.5-5.90); White Blood Cell 7.1 10^3/uL (4.4-10.8)
[2023-10-28 11:41] LABS: INR 1.09 (0.9-1.15); Partial Thromboplastin Time 27.7 SEC (24.5-34.5); Prothrombin Time 11.4 sec (9.3-11.8)
[2023-10-28 11:53] LABS: Alanine Aminotransferase 32 U/L (7-40); Albumin 4.7 g/dL (3.2-4.8); Alkaline Phosphatase 33 U/L (46-116); Anion Gap 9 (5-15); Aspartate Aminotransferase 33 U/L (13-40); BUN/Creatinine Ratio 10.1 (10.0-20.0); Bilirubin, Total 0.5 mg/dL (0.2-1.0); Blood Urea Nitrogen 10 mg/dL (9-23); Calcium 9.4 mg/dL (8.5-10.1); Carbon Dioxide 25 mmol/L (20-30); Chloride 106 mmol/L (98-107); Glucose 97 mg/dL (74-106); Sodium 140 mmol/L (136-145); Total Protein 7.1 g/dL (5.7-8.2)
[~2023-10-30] VITALS: Ht 185.4 cm; Wt 104.3 kg
[~2023-10-30 07:40] MED LIST changes: +ACET1CAP14 PO; -ASPI-543 PO; +ASPI81CA PO; +CLOP75TA28 PO; +DICL1GEL73 TD; +FENO145T27 PO; -GABA-1308 PO; +HYDR25TA5 PO; -IBUP-1456 PO; +LOSA-535 PO; +POM INJ; -PRAS10TA19 PO; +TAMS0.4C36 PO; +TEST200I32 IJ
[2023-10-30] MEDS ORDERED: LIDOCAINE 2%HCL (LOCAL ANESTH.) INJ 20ML MDV ONE (10:42)
[2023-10-30] MEDS ORDERED: IODIXANOL 320MG/ML 100ML BTL IV ONE ×2 (10:42→11:18)
[2023-10-30] MEDS ORDERED: ANGIOMAX 250 MG VIAL IV ONE ×2 (10:46→11:32)
[2023-10-30] MEDS ORDERED: fentaNYL CITRATE 100 MCG/2 ML VL ONE (10:47)
[2023-10-30] MEDS ORDERED: SODIUM CHL 0.9% 0 ML ONE (10:47)
[2023-10-30] MEDS ORDERED: VERAPAMIL 2.5MG/ML INJ 2ML VIAL IV ONE (10:47)
[2023-10-30] MEDS ORDERED: MIDAZOLAM HCL 2MG/2ML 2ml VIAL (1mg/ml) ONE (10:47)
[2023-10-30] MEDS ORDERED: HEPARIN SODIUM (PORCINE) 5000 UNITS/ML 1ML VIAL ONE (10:47)
[2023-10-30] MEDS ORDERED: ATROPINE SULF 1 MG/10ml SYR ONE (11:22)
[2023-10-30] MEDS ORDERED: SODIUM CHL 0.9% 50 ML ONE (11:33)
== END 2023-10-30 14:55 | disposition home or self-care (01) ==
LOC: CATH 07:40
PROVIDERS: ATTEND Student in an Organized Health Care Education/Training Program
DX: I25.119 Atherosclerotic heart disease of native coronary artery with unspecified angina pectoris (principal); I25.9 Chronic ischemic heart disease, unspecified; T82.855A Stenosis of coronary artery stent, initial encounter; I25.82 Chronic total occlusion of coronary artery; I10 Essential (primary) hypertension; E78.5 Hyperlipidemia, unspecified; N40.1 Benign prostatic hyperplasia with lower urinary tract symptoms; E03.9 Hypothyroidism, unspecified; F11.90 Opioid use, unspecified, uncomplicated; F31.9 Bipolar disorder, unspecified; G89.4 Chronic pain syndrome; Z95.818 Presence of other cardiac implants and grafts; Z88.2 Allergy status to sulfonamides; Z79.82 Long term (current) use of aspirin; Z79.899 Other long term (current) drug therapy; Z98.890 Other specified postprocedural states
CPT/HCPCS: 36415; 80053; 85025; 85610; 85730; 92920; 93458; C1725; C1769; C1887; C1894; J0583; J1644; J2250; J3010; J7030; Q9967; 99152; 99153

== ENCOUNTER 2023-12-25 08:49 | Day surgery (SDC) | payer OTHER, MEDICAID ==
[~2023-12-25] VITALS: Ht 185.4 cm; Wt 106.6 kg
[2023-12-25 08:44] LABS: INR 1.1 (0.9-1.15); Partial Thromboplastin Time 26.7 SEC (24.5-34.5); Prothrombin Time 11.6 sec (9.3-11.8)
[2023-12-25] MEDS ORDERED: VERAPAMIL 2.5MG/ML INJ 2ML VIAL IV ONE (10:12)
[2023-12-25] MEDS ORDERED: ANGIOMAX 250 MG VIAL IV ONE ×2 (10:12→11:13)
[2023-12-25] MEDS ORDERED: HEPARIN SODIUM (PORCINE) 5000 UNITS/ML 1ML VIAL ONE (10:12)
[2023-12-25] MEDS ORDERED: MIDAZOLAM HCL 2MG/2ML 2ml VIAL (1mg/ml) ONE (10:12)
[2023-12-25] MEDS ORDERED: fentaNYL CITRATE 100 MCG/2 ML VL ONE (10:12)
[2023-12-25] MEDS ORDERED: SODIUM CHL 0.9% 50 ML ONE ×2 (10:13→11:13)
[2023-12-25] MEDS ORDERED: LIDOCAINE 2%HCL (LOCAL ANESTH.) INJ 20ML MDV ONE (10:25)
[2023-12-25] MEDS ORDERED: IODIXANOL 320MG/ML 100ML BTL IV ONE ×2 (10:25→10:40)
[2023-12-25] MEDS ORDERED: HYDROmorphone HCL 2 MG/ML VL/or syr ONE (10:35)
[2023-12-25] MEDS ORDERED: ATROPINE SULF 1 MG/10ml SYR ONE (10:44)
== END 2023-12-25 14:25 | disposition home or self-care (01) ==
LOC: CATH 08:49
PROVIDERS: ATTEND Internal Medicine
DX: I25.82 Chronic total occlusion of coronary artery (principal); I25.119 Atherosclerotic heart disease of native coronary artery with unspecified angina pectoris; T82.855A Stenosis of coronary artery stent, initial encounter; I10 Essential (primary) hypertension; E78.5 Hyperlipidemia, unspecified; N40.0 Benign prostatic hyperplasia without lower urinary tract symptoms; F11.90 Opioid use, unspecified, uncomplicated; F31.9 Bipolar disorder, unspecified; Z79.82 Long term (current) use of aspirin; Z79.899 Other long term (current) drug therapy; Z98.890 Other specified postprocedural states; Z95.5 Presence of coronary angioplasty implant and graft; Z88.2 Allergy status to sulfonamides; Z79.01 Long term (current) use of anticoagulants
CPT/HCPCS: 36415; 85610; 85730; C1724; C1725; C1769; C1874; C1887; C1894; C9607; J0583; J1170; J1644; J2250; J3010; J7030; Q9967; 99152; 99153

== ENCOUNTER → 2024-01-21 | Outpatient (CLI) | payer OTHER, MEDICAID ==
[2024-01-21 07:33] LABS: Basophils # (auto) 0 10 ^3/uL (0-0.2); Basophils % (auto) 0.3 % (0.0-2.0); Eosinophils # (auto) 0.3 10 ^3/uL (0-0.8); Eosinophils % (auto) 3.6 % (0.0-7.0); Hematocrit 42.6 % (41.0-53.0); Hemoglobin 14.5 g/dL (13.5-17.5); Lymphocytes # (auto) 1.7 10 ^3/uL (0.4-5.4); Lymphocytes % (auto) 21.4 % (10.0-50.0); Mean Corpuscular Hemoglobin 30.1 pg (28.0-32.0); Mean Corpuscular Hgb Conc. 34.1 g/dL (32.0-36.0); Mean Corpuscular Volume 88.1 fL (80.0-100.0); Monocytes # (auto) 0.8 10 ^3/uL (0-1.3); Monocytes % (auto) 10.5 % (0.0-12.0); Neutrophils % (auto) 64.2 % (37.0-80.0); Red Blood Cells 4.84 10^6/uL (4.5-5.90); Red Cell Distribution Width 14.4 % (11.8-14.3); White Blood Cell 7.7 10^3/uL (4.4-10.8)
[2024-01-21 08:13] LABS: Alanine Aminotransferase 34 U/L (7-40); Albumin 4.5 g/dL (3.2-4.8); Alkaline Phosphatase 34 U/L (46-116); Anion Gap 7 (5-15); Aspartate Aminotransferase 25 U/L (13-40); BUN/Creatinine Ratio 9.5 (10.0-20.0); Blood Urea Nitrogen 10 mg/dL (9-23); Calcium 9.4 mg/dL (8.7-10.4); Carbon Dioxide 27 mmol/L (20-30); Chloride 108 mmol/L (98-107); Cholesterol 67 mg/dL (< 200); Glucose 108 mg/dL (74-106); HDL Cholesterol 35 mg/dL (40-59); LDL Cholesterol 15 mg/dL (< 100); Potassium 3.8 mmol/L (3.5-5.1); Sodium 142 mmol/L (136-145); Triglycerides 146 mg/dL (< 150)
[2024-01-21 08:14] LABS: Bilirubin, Total 0.3 mg/dL (0.2-1.0); Total Protein 6.6 g/dL (5.7-8.2)
[2024-01-21 08:16] LABS: Prostate Specific Antigen 2.11 ng/mL (0.0-4.0)
[2024-01-21 08:20] LABS: Free T4 (Free Thyroxine) 0.85 ng/dL (0.89-1.76)
== END | disposition home or self-care (01) ==
LOC: LAB 06:54
PROVIDERS: ATTEND Nurse Practitioner Family
DX: Z12.5 Encounter for screening for malignant neoplasm of prostate (principal); E78.1 Pure hyperglyceridemia; I13.0 Hypertensive heart and chronic kidney disease with heart failure and stage 1 through stage 4 chronic kidney disease, or unspecified chronic kidney disease; I50.9 Heart failure, unspecified; N18.9 Chronic kidney disease, unspecified; R79.89 Other specified abnormal findings of blood chemistry
CPT/HCPCS: 36415; 80053; 80061; 84153; 84403; 84439; 84443; 85025

== ENCOUNTER → 2024-04-02 | Outpatient (CLI) | payer OTHER, MEDICAID ==
[~2024-04-02] MED LIST changes: -TAMS0.4C36 PO; +TAMS0.4C39 PO
[2024-04-02 10:58] LABS: Triglycerides 207 mg/dL (< 150)
[2024-04-02 10:59] LABS: LDL Cholesterol 47 mg/dL (< 100)
[2024-04-02 11:00] LABS: Cholesterol 107 mg/dL (< 200); HDL Cholesterol 36 mg/dL (40-59)
== END | disposition home or self-care (01) ==
LOC: LAB 10:06
PROVIDERS: ATTEND Internal Medicine
DX: I10 Essential (primary) hypertension (principal); I25.10 Atherosclerotic heart disease of native coronary artery without angina pectoris
CPT/HCPCS: 36415; 80061

== ENCOUNTER → 2024-09-16 | Outpatient (CLI) | payer OTHER, MEDICAID ==
[2024-09-16 08:33] LABS: Basophils # (auto) 0 10 ^3/uL (0-0.2); Basophils % (auto) 0.3 % (0.0-2.0); Eosinophils # (auto) 0.1 10 ^3/uL (0-0.8); Eosinophils % (auto) 2.1 % (0.0-7.0); Hematocrit 47.8 % (41.0-53.0); Lymphocytes # (auto) 1.5 10 ^3/uL (0.4-5.4); Lymphocytes % (auto) 21.3 % (10.0-50.0); Mean Corpuscular Hemoglobin 30.2 pg (28.0-32.0); Mean Corpuscular Hgb Conc. 33.5 g/dL (32.0-36.0); Mean Corpuscular Volume 90.2 fL (80.0-100.0); Monocytes # (auto) 0.7 10 ^3/uL (0-1.3); Neutrophils # (auto) 4.9 10 ^3/uL (1.6-8.6); Neutrophils % (auto) 67.3 % (37.0-80.0); Nucleated Red Blood Cells % 0.1 %; Platelet Count (auto) 230 10^3/uL (140-450); Red Cell Distribution Width 14.2 % (11.8-14.3); White Blood Cell 7.2 10^3/uL (4.4-10.8)
[2024-09-16 08:49] LABS: Alanine Aminotransferase 29 U/L (7-40); Anion Gap 7 (5-15); Aspartate Aminotransferase 22 U/L (13-40); BUN/Creatinine Ratio 16.7 (10.0-20.0); Bilirubin, Total 0.5 mg/dL (0.2-1.0); Blood Urea Nitrogen 18 mg/dL (9-23); Carbon Dioxide 27 mmol/L (20-31); Chloride 106 mmol/L (98-107); Cholesterol 76 mg/dL (< 200); LDL Cholesterol 19 mg/dL (< 100); Potassium 4.8 mmol/L (3.5-5.1); Sodium 140 mmol/L (136-145); Total Protein 7.6 g/dL (5.7-8.2)
[2024-09-16 08:53] LABS: Alkaline Phosphatase 41 U/L (46-116); Calcium 10.5 mg/dL (8.7-10.4); Glucose 123 mg/dL (74-106); HDL Cholesterol 34 mg/dL (40-59); Triglycerides 238 mg/dL (< 150)
[2024-09-16 11:27] LABS: Free T3 3.06 pg/mL (2.3-4.2)
[2024-09-16 11:28] LABS: Free T4 (Free Thyroxine) 1.12 ng/dL (0.89-1.76)
== END | disposition home or self-care (01) ==
LOC: LAB 07:55
PROVIDERS: ATTEND Internal Medicine
DX: I10 Essential (primary) hypertension (principal); E78.5 Hyperlipidemia, unspecified
CPT/HCPCS: 36415; 80053; 80061; 84439; 84443; 84481; 85025

== ENCOUNTER → 2024-10-09 | Outpatient (CLI) | payer OTHER | END | disposition home or self-care (01) | LOC: LAB 08:29 | PROVIDERS: ATTEND Dermatology | DX: D48.5 Neoplasm of uncertain behavior of skin (principal) ==

== ENCOUNTER → 2025-02-04 | Outpatient (CLI) | payer OTHER | END | disposition home or self-care (01) | LOC: LAB 12:47 | PROVIDERS: ATTEND Nurse Practitioner Family | DX: E29.1 Testicular hypofunction (principal); R73.03 Prediabetes; Z00.01 Encounter for general adult medical examination with abnormal findings; Z79.899 Other long term (current) drug therapy | CPT/HCPCS: 36415; 82043; 83036; 84153; 84403 ==

== ENCOUNTER → 2025-02-12 | Outpatient (CLI) | payer OTHER | END | disposition home or self-care (01) | LOC: LAB 10:32 | PROVIDERS: ATTEND Dermatology | DX: Z01.812 Encounter for preprocedural laboratory examination (principal) ==

== ENCOUNTER → 2025-02-15 | Outpatient (CLI) | payer OTHER | END | disposition home or self-care (01) | LOC: LAB 11:47 | PROVIDERS: ATTEND Dermatology | DX: Z01.812 Encounter for preprocedural laboratory examination (principal) ==

== ENCOUNTER 2025-03-19 09:13 | Outpatient (CLI) | payer OTHER ==
[2025-03-19 10:00] LABS: Anion Gap 10 (5-15); Carbon Dioxide 26 mmol/L (20-31); Chloride 104 mmol/L (98-107); Potassium 3.9 mmol/L (3.5-5.1); Sodium 140 mmol/L (136-145)
[2025-03-19 10:01] LABS: Calcium 9.3 mg/dL (8.7-10.4)
[2025-03-19 10:06] LABS: BUN/Creatinine Ratio 9.8 (10.0-20.0); Blood Urea Nitrogen 11 mg/dL (9-23)
[2025-03-19 10:18] LABS: Glucose 118 mg/dL (74-106)
== END 2025-03-19 17:00 | disposition home or self-care (01) ==
LOC: LAB 09:13
PROVIDERS: ATTEND Nurse Practitioner Family
DX: Z01.812 Encounter for preprocedural laboratory examination (principal); D13.4 Benign neoplasm of liver
CPT/HCPCS: 36415; 80048

== ENCOUNTER 2025-03-31 06:54 | Day surgery (SDC) | payer OTHER, MEDICAID ==
[2025-03-29 09:51] LABS: Hematocrit 44.9 % (41.0-53.0); Hemoglobin 15.6 g/dL (13.5-17.5); Mean Corpuscular Hemoglobin 30.3 pg (28.0-32.0); Mean Corpuscular Volume 87.3 fL (80.0-100.0); Nucleated Red Blood Cells % 0.1 %
[2025-03-29 10:04] LABS: INR 1.08 (0.9-1.15); Partial Thromboplastin Time 27.2 SEC (24.5-34.5); Prothrombin Time 11.4 sec (9.3-11.8)
[2025-03-29 10:22] LABS: Alanine Aminotransferase 30 U/L (7-40); Albumin 4.7 g/dL (3.2-4.8); Anion Gap 7 (5-15); BUN/Creatinine Ratio 8.6 (10.0-20.0); Blood Urea Nitrogen 10 mg/dL (9-23); Calcium 9.3 mg/dL (8.7-10.4); Carbon Dioxide 30 mmol/L (20-31); Chloride 105 mmol/L (98-107); Glucose 104 mg/dL (74-106); Potassium 4.1 mmol/L (3.5-5.1); Sodium 142 mmol/L (136-145); Total Protein 7.4 g/dL (5.7-8.2)
[2025-03-29 10:23] LABS: Bilirubin, Total 0.4 mg/dL (0.2-1.0)
[2025-03-29 10:35] LABS: Alkaline Phosphatase 33 U/L (46-116)
[2025-03-31] VITALS (7 sets, daily range): BP systolic 165–173; BP diastolic 95–111; PULSE 74–80; RESP 12–17; TEMP 98.4; O2SAT 93–96
[~2025-03-31] VITALS: Ht 185.4 cm; Wt 108.9 kg
[~2025-03-31 06:54] MED LIST changes: -ATOR40TA52 PO; -DICL1GEL73 TD; +EVOL140I2 SC; -LISI10TA34 PO; +NITR0.4S29 SL
[2025-03-31] MEDS ORDERED: IODIXANOL 320MG/ML 100ML BTL IV ONE ×2 (10:17→10:35)
[2025-03-31] MEDS ORDERED: ANGIOMAX 250 MG VIAL IV ONE (10:28)
[2025-03-31] MEDS ORDERED: MIDAZOLAM HCL 2MG/2ML 2ml VIAL (1mg/ml) ONE (10:29)
[2025-03-31] MEDS ORDERED: VERAPAMIL 2.5MG/ML INJ 2ML VIAL IV ONE (10:29)
[2025-03-31] MEDS ORDERED: LIDOCAINE 2%HCL (LOCAL ANESTH.) INJ 20ML MDV ONE (10:29)
[2025-03-31] MEDS ORDERED: fentaNYL CITRATE 100 MCG/2 ML VL ONE (10:29)
[2025-03-31] MEDS ORDERED: SODIUM CHL 0.9% 0 ML ONE (10:29)
[2025-03-31] MEDS ORDERED: HEPARIN SODIUM (PORCINE) 5000 UNITS/ML 1ML VIAL ONE (10:29)
--- NOTE | 2025-03-31 12:09 | DVHOP2 ---
Operative Report - 2 Report Details Date: 03/31/25 Preop Diagnosis: CAD Postop Diagnosis: Coronary artery disease, stable. Surgeon: Krista Schwarz MD Anesthesiologist: Conscious sedation Anesthesia: Mac, Local Consent: The patient was informed of the risks and benefits of the procedure. These include but are not limited to complications of anesthesia, postoperative infection, incomplete relief of symptoms, recurrence of symptoms, damage to blood vessels, nerves and tendons, deep venous thrombosis, pulmonary embolism and possible need for repeat surgery in the future. Complications: No complications Findings: Stable CAD Indications for Surgery: Chest pain Name of Procedure Performed Left heart catheterization. Bilateral cine coronary angiography. Left ventriculography. Procedure Details Procedure Details: Prior local anesthesia with 2% lidocaine to the right wrist and full informed consent obtained the patient was prepped and draped in usual fashion followed by placement of a six Armenian sheath into the radial artery through which a Rudy catheter was used for ventriculography and cannulation of both right and left coronary arteries without complications. Associated fractional flow reserve evaluation was also performed with a cathworks program Hemodynamics: Aortic blood pressure was 130/70. End-diastolic pressure was 20. There was no gradient across the aortic valve on pullback Coronary anatomy: The RCA is a large vessel it has been stented in its mid section. There is a certain degree of in stent restenosis. Overall it appears to be a 30-40% in stent restenosis at its mid section. Fractional flow reserve evaluation performed reveals an FFR of 0.88 consistent with noncritical disease. The PDA and posterolateral branches are normal. Left main is large and normal. Left anterior descending coronary artery is a large vessel it has no significant stenosis in its proximal mid and distal segments. The circumflex is a large vessel with two obtuse marginals free of significant disease. Ventriculography in the LEOS projection shows an EF of 60% Impression: Elevated left ventricular end-diastolic pressure at rest with normal ejection fraction. No significant in stent restenosis of the RCA. No critical lesions in the coronary vasculature. Endothelial dysfunction and or diastolic dysfunction can be considered Recommendations: Medical therapy is warranted continue with risk factor modification. Condition Good Disposition 2 Home Date of Service: Mar 31, 2025 Billing Provider: KRISTA SCHWARZ Sr., MD Cardiology Common Codes: 63872-DVTTDMS INP/OBS CARE (High) Cardiology Procedure Codes: 04790-YBKR HEART CATH W/INTRA INJ KRISTA SCHWARZ Sr., MD Mar 31, 2025 12:09
[2025-03-31] MEDS: ACETAMINOPHEN 325 MG TAB PO ONE ×2 (12:48→13:08)
== END 2025-03-31 13:45 | disposition home or self-care (01) ==
LOC: CATH 06:54
PROVIDERS: ATTEND Internal Medicine
DX: R07.9 Chest pain, unspecified (principal); I25.10 Atherosclerotic heart disease of native coronary artery without angina pectoris; R06.02 Shortness of breath
CPT/HCPCS: 36415; 80053; 85025; 85610; 85730; 93458; C1769; C1887; C1894; J1644; J2250; J3010; Q9967; 99152

== ENCOUNTER → 2025-04-02 | Outpatient (CLI) | payer OTHER | END | disposition home or self-care (01) | LOC: LAB 13:00 | PROVIDERS: ATTEND Dermatology | DX: Z01.812 Encounter for preprocedural laboratory examination (principal); D04.72 Carcinoma in situ of skin of left lower limb, including hip ==

== ENCOUNTER → 2025-04-09 | Outpatient (CLI) | payer OTHER ==
[~2025-04-09] MED LIST changes: +ALBUTEROL SULF 2.5 MG/0.5ML(0.5%) NEB SOLN ONE
== END | disposition home or self-care (01) ==
LOC: RT 08:39
PROVIDERS: ATTEND Internal Medicine Pulmonary Disease
DX: J44.9 Chronic obstructive pulmonary disease, unspecified (principal); R06.00 Dyspnea, unspecified; Z79.899 Other long term (current) drug therapy
CPT/HCPCS: 94060; 94618; 94727; 94729

== ENCOUNTER 2025-06-25 10:38 | Day surgery (SDC) | payer OTHER, MEDICAID ==
[2025-06-22 10:20] LABS: Hematocrit 49.3 % (41.0-53.0); Hemoglobin 16.6 g/dL (13.5-17.5); Mean Corpuscular Hemoglobin 29.9 pg (28.0-32.0); Mean Corpuscular Volume 88.9 fL (80.0-100.0); Nucleated Red Blood Cells % 0.1 %
[2025-06-22 10:26] LABS: Urine Protein, UAD Negative (Negative)
[2025-06-22 10:30] LABS: INR 1.09 (0.9-1.15); Partial Thromboplastin Time 28.2 SEC (24.5-34.5); Prothrombin Time 11.5 sec (9.3-11.8)
[2025-06-22 10:37] LABS: Alanine Aminotransferase 25 U/L (7-40); Albumin 4.7 g/dL (3.2-4.8); Anion Gap 9 (5-15); BUN/Creatinine Ratio 8.8 (10.0-20.0); Blood Urea Nitrogen 12 mg/dL (9-23); Calcium 9.7 mg/dL (8.7-10.4); Carbon Dioxide 30 mmol/L (20-31); Chloride 103 mmol/L (98-107); Glucose 102 mg/dL (74-106); Potassium 4.8 mmol/L (3.5-5.1); Sodium 142 mmol/L (136-145); Total Protein 7.6 g/dL (5.7-8.2)
[2025-06-22 10:38] LABS: Bilirubin, Total 0.5 mg/dL (0.2-1.0)
[2025-06-22 10:46] LABS: Alkaline Phosphatase 39 U/L (46-116)
[~2025-06-25] VITALS: Ht 188 cm; Wt 111.1 kg
[~2025-06-25 10:38] MED LIST changes: -ALBUTEROL SULF 2.5 MG/0.5ML(0.5%) NEB SOLN ONE
[2025-06-25] MEDS ORDERED: PROPOFOL 10 MG/ML 20 ML IV ONE (12:27)
[2025-06-25] MEDS ORDERED: ONDANSETRON HCL 4 MG/2 ML VIAL ONE (12:27)
[2025-06-25] MEDS ORDERED: LIDOCAINE 2% (LOCAL ANESTH.) PF 5ml SDV ONE (12:27)
[2025-06-25] MEDS ORDERED: METOCLOPRAMIDE HCL 5MG/ml INJ 2ml VIAL ONE (12:27)
[2025-06-25 12:56] VITALS: TEMP 99.1; O2SAT 100
[2025-06-25 13:20] VITALS: BP 107/73; PULSE 73; RESP 12; O2SAT 98
--- NOTE | 2025-06-25 13:28 | DVHOP2 ---
Operative Report DATE OF OPERATION: 06/25/25 PROCEDURE: Diagnostic Colonoscopy. PREOPERATIVE INDICATION: The patient is a 65 -year-old male undergoing colonoscopy for surveillance with personal history of colon polyps POSTOPERATIVE DIAGNOSES: 1. Mild sigmoid diverticular disease 2. Trace to 1+ internal hemorrhoids 3. Otherwise normal examination up to the cecum and terminal ileum with no polyps or masses noted PROCEDURE PERFORMED BY: Dahlia Salazar M.D. SCOPE: Olympus videocolonoscope. ASA CLASS: 3. PREOPERATIVE MEDICATIONS: Mac sedation, Kaleb PROCEDURE IN DETAIL: After obtaining an informed consent, the patient was placed on left lateral decubitus position. He was then sedated with the above medications. A rectal examination was performed that was normal. The colonoscope was then passed through the anus into the rectosigmoid and through the descending, transverse, and ascending colon up to the cecum with visualization of the appendiceal orifice, base of the cecum and the ileocecal valve. The colonoscope was then withdrawn. The distal 5-10 cm of the terminal ileum were normal No polyps or masses were seen. There was no colitis. Patient had mild sigmoid diverticular disease On retroflexion and straight on view he had trace to 1+ internal hemorrhoids. The patient tolerated the procedure well without difficulty. WITHDRAWAL TIME: 6 minutes QUALITY OF THE PREP: [place] Bowel Prep score: 9. COMPLICATIONS : None SPECIMENS: None DISPOSITION: Stable D/C to home PLAN: 1. Repeat colonoscopy in 5-7 years because of history of polyp 2. Resume GI soft diet advance as tolerated 3. Local anorectal hemorrhoidal care 4. Outpatient follow up with me in 2-4 weeks to review results and discuss further management DAHLIA SALAZAR MD Jun 25, 2025 13:28
--- NOTE | 2025-06-25 13:32 | DVHOP2 ---
Operative Report DATE OF OPERATION: 06/25/25 PROCEDURE: Upper Endoscopy with biopsy. PREOPERATIVE INDICATION: The patient is a 65 -year-old male undergoing endoscopy for surveillance of Barretts esophagus POSTOPERATIVE DIAGNOSES: 1. 2 cm sliding-type hiatal hernia with slightly irregular squamocolumnar junction and short-segment extension of columnar epithelium into the distal esophagus for 1-2 cm from which biopsies were obtained 2. Minimal gastritis otherwise normal examination up to the 2nd and 3rd part of the duodenum PROCEDURE PERFORMED BY: Willa Salazar GI NURSE: Vy SCOPE: Olympus videoendoscope. ASA CLASS: 3 PREOPERATIVE MEDICATIONS: Mac sedation, Kaleb stringer PROCEDURE IN DETAIL: After obtaining an informed consent, the patient was placed on left lateral decubitus position. The patient was then sedated with the above medications. A bite block was placed between his teeth. The endoscope was then passed through the oropharynx, into the esophagus, and through the stomach and pylorus up to the second and third part of the duodenum. The endoscope was then withdrawn. The 2nd and 3rd part of the duodenal and the duodenal bulb were normal. The pre-pyloric area and antrum showed minimal gastritis On retroflexion the fundus and cardia were normal. Duodenal and gastric biopsi es were obtained. The endoscope was then withdrawn into the distal esophagus. Patient had a 2 cm sliding-type hiatal hernia with minimal grade a erosive esophagitis Patient had a slightly irregular squamocolumnar junction and short-segment extension of columnar epithelium into the distal esophagus for 1-2 cm from which biopsies were obtained The remaining distal and proximal esophagus and oropharynx were unremarkable. The patient tolerated the procedure well without difficulty. COMPLICATIONS : None SPECIMENS: Duodenal biopsies Gastric biopsies GE junction biopsy DISPOSITION: Stable D/C to home PLAN: 1. Await for biopsy result 2. Will place pt on Protonix 40 mg bid p.o. 3. Lifestyle and dietary modifications for GERD 4. Resume GI soft diet advance as tolerated 5. Outpatient follow up with me in 4-6 weeks to review results and discuss further management WILLA SALAZAR MD Jun 25, 2025 13:32
== END 2025-06-25 13:28 | disposition home or self-care (01) ==
LOC: GI 10:38
PROVIDERS: ATTEND Internal Medicine Gastroenterology
DX: Z12.11 Encounter for screening for malignant neoplasm of colon (principal); K44.9 Diaphragmatic hernia without obstruction or gangrene; K29.50 Unspecified chronic gastritis without bleeding; K20.80 Other esophagitis without bleeding; K57.30 Diverticulosis of large intestine without perforation or abscess without bleeding; K64.8 Other hemorrhoids; I12.9 Hypertensive chronic kidney disease with stage 1 through stage 4 chronic kidney disease, or unspecified chronic kidney disease; N18.30 Chronic kidney disease, stage 3 unspecified; I25.2 Old myocardial infarction; E03.9 Hypothyroidism, unspecified; F12.90 Cannabis use, unspecified, uncomplicated; Z88.2 Allergy status to sulfonamides; Z95.5 Presence of coronary angioplasty implant and graft; Z98.890 Other specified postprocedural states; Z86.0100 Personal history of colon polyps, unspecified; Z79.82 Long term (current) use of aspirin; Z79.890 Hormone replacement therapy; Z79.01 Long term (current) use of anticoagulants; Z79.899 Other long term (current) drug therapy
CPT/HCPCS: 36415; 43239; 45378; 80053; 81001; 85025; 85610; 85730; 88305; 88342; J2003; J2405; J2704; J2765; J7030